=== PATIENT | female | born 1985 | race Caucasian/White ===

== ENCOUNTER 2022-05-19 21:41 | Observation (INO) | payer MEDICAID ==
[~2022-05-19] VITALS: Ht 157 cm; Wt 76.2 kg
[2022-05-19 23:37] VITALS: BP 110/61
[2022-05-19 23:54] VITALS: BP 100/55
== END 2022-05-19 23:50 | disposition home or self-care (01) ==
LOC: MLD 21:41
PROVIDERS: ADMIT Obstetrics & Gynecology; ATTEND Obstetrics & Gynecology
DX: O36.8130 Decreased fetal movements, third trimester, not applicable or unspecified (principal); Z20.822 Contact with and (suspected) exposure to COVID-19; O24.410 Gestational diabetes mellitus in pregnancy, diet controlled; Z3A.30 30 weeks gestation of pregnancy
CPT/HCPCS: 76819; 87426; G0378; Q0092

== ENCOUNTER 2022-06-19 19:06 | Observation (INO) | payer MEDICAID ==
[~2022-06-19] VITALS: Ht 153 cm; Wt 76.7 kg
[2022-06-19 19:46] VITALS: BP 100/55
[2022-06-19] MEDS ORDERED: PNV1TABL5 PO (20:14)
== END 2022-06-19 20:40 | disposition home or self-care (01) ==
LOC: MLD 19:06
PROVIDERS: ADMIT Obstetrics & Gynecology; ATTEND Obstetrics & Gynecology
DX: O24.410 Gestational diabetes mellitus in pregnancy, diet controlled (principal); O26.893 Other specified pregnancy related conditions, third trimester; R10.9 Unspecified abdominal pain; Z3A.34 34 weeks gestation of pregnancy
CPT/HCPCS: 82948; 87426; G0378; G0379; 81000

== ENCOUNTER 2022-07-26 08:21 | Inpatient (IN) | payer MEDICAID ==
[~2022-07-26] VITALS: Ht 153 cm; Wt 79.4 kg
[~2022-07-26 08:21] MED LIST: PNV1TABL5 PO
[2022-07-26] MEDS ORDERED: NACL 0.9% 1,000 ML IV SCH (09:15)
[2022-07-26 10:31] LABS: APPEARANCE,URINE CLEAR (CLEAR); BILIRUBIN,URINE NEGATIVE (NEGATIVE); BLOOD, URINE NEGATIVE (NEGATIVE); COLOR,URINE YELLOW (YELLOW); LEUKOCYTE ESTERASE ,URINE NEGATIVE (NEGATIVE); NITRITE, URINE NEGATIVE (NEGATIVE); UGLUCOSE NEGATIVE (NEGATIVE)
[2022-07-26 10:36] LABS: BASOPHILS % (AUTO) 0.3 % (0.0-2.0); EOSINOPHILS % (AUTO) 0.5 % (0.0-4.0); HEMATOCRIT 40.3 % (36-48); HEMOGLOBIN 13.7 g/dL (12.0-16.0); LYMPHOCYTES # (AUTO) 1.6 K/uL (2.5-16.5); LYMPHOCYTES % (AUTO) 16.1 % (20.5-51.1); MEAN CORPUSCULAR HEMOGLOBIN 30 pg (27-31); MEAN CORPUSCULAR HGB CONC 34 g/dL (33-37); MEAN CORPUSCULAR VOLUME 87.5 fL (80-94); MONOCYTES # (AUTO) 0.7 K/uL (0.8-1.0); MONOCYTES % (AUTO) 6.5 % (1.7-9.3); NEUTROPHILS # (AUTO) 7.7 K/uL (1.8-7.7); NEUTROPHILS % (AUTO) 76.6 % (42.2-75.2); PLATELET COUNT (AUTO) 206 K/uL (140-450); RED CELL DISTRIBUTION WIDTH 14.2 % (11.6-13.7); WHITE BLOOD COUNT (AUTO) 10.1 K/uL (4.8-10.8)
[2022-07-26 10:56] LABS: PROTHROMBIN TIME 9.6 secs (10.8-13.4)
[2022-07-26 11:00] LABS: ALBUMIN 2.3 g/dL (3.4-5.0); ANION GAP 15.3 (8-16); CARBON DIOXIDE 20.4 mmol/L (21-32); CREATININE 0.5 mg/dL (0.6-1.3); POTASSIUM 3.7 mmol/L (3.5-5.1); TOTAL BILIRUBIN 0.5 mg/dL (0.0-1.0)
[2022-07-26] MEDS ORDERED: ceFAZolin Sod. 2,000 MG in DEXTROSE 5% 100 ML IV STA (11:44)
[2022-07-26] MEDS ORDERED: IBUPROFEN 800 MG TAB PO PRN (11:50)
[2022-07-26] MEDS ORDERED: MEASLES, MUMPS, AND RUBELLA 1 VIAL SQVAC PRN ×2 (11:50→12:10)
[2022-07-26] MEDS ORDERED: TEMAZEPAM 15 MG CAP PO PRN (11:50)
[2022-07-26] MEDS ORDERED: KETOROLAC 30 MG/ML VIAL IVP PRN (11:50)
[2022-07-26] MEDS ORDERED: METHYLERGONOVINE 0.2 MG/ML AMP IM PRN (11:50)
[2022-07-26] MEDS ORDERED: oxyCODONE/APAP 5/325 MG 1 TAB TAB PO PRN (11:50)
[2022-07-26] MEDS ORDERED: PROPOFOL 200 MG/20 ML VIAL IV ONE (12:00)
[2022-07-26] MEDS ORDERED: MORPHINE SULFATE 10 MG/ML VIAL ONE (12:00)
[2022-07-26] MEDS ORDERED: ONDANSETRON 4 MG/2 ML VIAL ONE (12:00)
[2022-07-26] MEDS ORDERED: MORPHINE PRES FREE 10 MG/10 ML AMP IV ONE (12:02)
[2022-07-26] MEDS ORDERED: MIDAZOLAM 2 MG/2 ML VIAL ONE (12:03)
[2022-07-26] MEDS ORDERED: ceFAZolin 2,000 MG VIAL ONE (12:16)
[2022-07-26] MEDS ORDERED: NALBUPHINE 10 MG/ML AMP IVP PRN (13:10)
[2022-07-26] MEDS ORDERED: MEPERIDINE 25 MG/ML SYR IVP PRN (13:10)
[2022-07-26] MEDS ORDERED: OXYTOCIN 20 UNITS in LACTATED RINGERS 1,000 ML IV SCH (13:10)
[2022-07-26] MEDS ORDERED: diphenhydrAMINE 50 MG/ML VIAL IVP PRN ×2 (13:10)
[2022-07-26] MEDS ORDERED: NALOXONE 0.4 MG/ML VIAL IVP PRN ×3 (13:10)
[2022-07-26] MEDS ORDERED: ONDANSETRON 4 MG/2 ML VIAL IVP PRN ×2 (13:10)
[2022-07-26] MEDS ORDERED: diphenhydrAMINE 50 MG/ML VIAL ONE (13:17)
[2022-07-26] MEDS: HYDROmorphone 1 MG/ML AMP IVP PRN ×4 (13:20→13:50)
[2022-07-26] MEDS ORDERED: HYDROmorphone PFS 2 MG/ML SYR ONE (13:28)
[2022-07-26] MEDS: OXYTOCIN 20 UNITS/LR PREMIX 1,000 ML IV ONE ×2 (13:35→13:54)
[2022-07-26] MEDS: KETOROLAC 30 MG/ML VIAL IM/IVP SCH (18:16)
[2022-07-26] MEDS ORDERED: OXYTOCIN 20 UNITS/LR PREMIX 1,000 ML IV ONE (19:27)
[2022-07-26] MEDS: OXYTOCIN 20 UNITS in LACTATED RINGERS 1,000 ML IV SCH (19:42)
[2022-07-26] MEDS: DOCUSATE SOD/SENNA 50/8.6 MG 1 TAB PO SCH (21:00)
[2022-07-27] MEDS: KETOROLAC 30 MG/ML VIAL IM/IVP SCH ×2 (00:30→06:13)
[2022-07-27] MEDS ORDERED: OXYTOCIN 20 UNITS/LR PREMIX 1,000 ML IV ONE (03:17)
[2022-07-27] MEDS: OXYTOCIN 20 UNITS in LACTATED RINGERS 1,000 ML IV SCH (03:43)
[2022-07-27 05:53] LABS: BASOPHILS % (AUTO) 0.4 % (0.0-2.0); EOSINOPHILS % (AUTO) 0.3 % (0.0-4.0); HEMATOCRIT 32.1 % (36-48); HEMOGLOBIN 11.2 g/dL (12.0-16.0); LYMPHOCYTES # (AUTO) 1.1 K/uL (2.5-16.5); MEAN CORPUSCULAR HEMOGLOBIN 30 pg (27-31); MEAN CORPUSCULAR HGB CONC 35 g/dL (33-37); MEAN CORPUSCULAR VOLUME 87.1 fL (80-94); MONOCYTES # (AUTO) 0.9 K/uL (0.8-1.0); MONOCYTES % (AUTO) 8.9 % (1.7-9.3); NEUTROPHILS # (AUTO) 8.2 K/uL (1.8-7.7); NEUTROPHILS % (AUTO) 79.4 % (42.2-75.2); PLATELET COUNT (AUTO) 166 K/uL (140-450); RED BLOOD CELL COUNT(AUTO) 3.68 MIL/uL (4.20-5.40); RED CELL DISTRIBUTION WIDTH 14.3 % (11.6-13.7); WHITE BLOOD COUNT (AUTO) 10.3 K/uL (4.8-10.8)
[2022-07-27] MEDS: SIMETHICONE 80 MG TAB.CHEW PO PRN ×2 (09:14→13:17)
--- NOTE | 2022-07-27 11:06 | NUR ---
PATIENT HAS BEEN SCREENED AND CATEGORIZED LOW NUTRITION RISK. PATIENT WILL BE SEEN WITHIN 7 DAYS OF ADMISSION. 08/02/22 [address]
[2022-07-27] MEDS: oxyCODONE/APAP 5/325 MG 1 TAB TAB PO PRN (15:48)
[2022-07-27] MEDS: DOCUSATE SOD/SENNA 50/8.6 MG 1 TAB PO SCH (21:04)
[2022-07-28] MEDS ORDERED: CAMERA MC ONE (03:46)
[2022-07-28] MEDS: SIMETHICONE 80 MG TAB.CHEW PO PRN (08:56)
[2022-07-28] MEDS: oxyCODONE/APAP 5/325 MG 1 TAB TAB PO PRN (12:33)
[2022-07-30 06:07] LABS: HEPATITIS B SURFACE ANTIGEN Negative (Negative)
== END 2022-07-28 14:40 | disposition home or self-care (01) | DRG 539 ==
LOC: MFCC 08:21 → OBSVTOIN 09:12 → MFCC 14:09
PROVIDERS: ADMIT Obstetrics & Gynecology; ATTEND Obstetrics & Gynecology
PROC: 0UB70ZZ Excision of Bilateral Fallopian Tubes, Open Approach (ICD-10-PCS; 2022-07-26)
PROC: 10D00Z1 Extraction of Products of Conception, Low, Open Approach (ICD-10-PCS; principal; 2022-07-26 12:20)
DX: O82 Encounter for cesarean delivery without indication (principal); R71.0 Precipitous drop in hematocrit; Z20.822 Contact with and (suspected) exposure to COVID-19; Z3A.38 38 weeks gestation of pregnancy; Z37.0 Single live birth; Z30.2 Encounter for sterilization
CPT/HCPCS: 36415; 80053; 81003; 85025; 85610; 85730; 86592; 86762; 86886; 86900; 86901; 87340; J1170; J1200; J1885; J2210; J2250; J2270; J2405; J2590; J2704

== ENCOUNTER 2022-08-13 07:58 | Emergency (ER) | payer MEDICAID ==
[~2022-08-13] VITALS: Ht 152.4 cm; Wt 73.0 kg
[2022-08-13 08:06] VITALS: BP 113/64
[2022-08-13] MEDS ORDERED: ACETAMINOPHEN 325 MG TAB PO ONE (08:25)
[2022-08-13] MEDS ORDERED: DYN250 PO (09:11)
--- NOTE | 2022-08-13 09:16 | NUR ---
37Y/O FEMALE PRESENTS TO ED WITH C/O COLD SYMPTOMS AND LEFT BREAST PAIN X1DAY. PT REPORTS FEVERS, CHILLS AND BODY ACHES, TOOK IBUPROFEN LAST NIGHT WITH MILD RELIEF. PT REPORTS LEFT BREAST PAIN SINCE YESTERDAY MORNING, SWELLING, REDNESS AND HOT TO TOUCH, 5/10 THROBBING LIKE INTERMITTENT PAIN. PT DENIES TAKING MEDS THIS MORNING.
--- NOTE | 2022-08-13 09:41 | NUR ---
Patient discharged with v/s stable. Written and verbal after care instructions about mastitis given and explained. Patient alert, oriented and verbalized understanding of instructions. Ambulatory with steady gait. All questions addressed prior to discharge. ID band removed. Patient advised to follow up with PMD. Rx of DYNAPEN given. Patient educated on indication of medication including possible reaction and side effects. Opportunity to ask questions provided and answered.
== END 2022-08-13 09:41 | disposition home or self-care (01) ==
LOC: MED 07:58
DX: N61.0 Mastitis without abscess (principal); Z20.822 Contact with and (suspected) exposure to COVID-19; M54.2 Cervicalgia; Z79.899 Other long term (current) drug therapy; Z98.890 Other specified postprocedural states
CPT/HCPCS: 99283